=== PATIENT | male | born 1935 | race Caucasian/White ===

== ENCOUNTER 2023-09-24 11:11 | Emergency (ER) | payer MEDICARE, BC, SELFPAY ==
--- NOTE | ~2023-09-24 | XR_ITS ---
EXAMINATION:XR foot LT 2V, XR ankle LT min 3V VIEWS ACQUIRED: Frontal lateral and oblique left foot, 2 views ankle, total 5 views. CLINICAL INFORMATION: Reason for Exam Lt foot pain COMPARISON: None available at the time of this dictation. FINDINGS: Mildly displaced oblique fracture of the distal fibula just proximal to the ankle mortise. There is avulsion fracture of the medial malleolar tip suggesting eversion injury. Talar dome and tibial plafonds are intact. There is soft tissue swelling around medial and lateral malleoli. There are no other fractures.. Intertarsal, tarsometatarsal, metatarsophalangeal and interphalangeal joints are intact. Surrounding soft tissues is normal. , There are heavy vascular calcifications. XR/XR foot LT 2V IMPRESSION: 1. Mildly displaced oblique fracture of the distal fibula just proximal to the ankle mortise. 2. Avulsion fracture of the medial malleolar tip. 3. Soft tissue swelling around medial and lateral malleoli. 4. Heavy vascular calcifications.
--- NOTE | ~2023-09-24 | XR_ITS ---
EXAMINATION:XR foot LT 2V, XR ankle LT min 3V VIEWS ACQUIRED: Frontal lateral and oblique left foot, 2 views ankle, total 5 views. CLINICAL INFORMATION: Reason for Exam Lt foot pain COMPARISON: None available at the time of this dictation. FINDINGS: Mildly displaced oblique fracture of the distal fibula just proximal to the ankle mortise. There is avulsion fracture of the medial malleolar tip suggesting eversion injury. Talar dome and tibial plafonds are intact. There is soft tissue swelling around medial and lateral malleoli. There are no other fractures.. Intertarsal, tarsometatarsal, metatarsophalangeal and interphalangeal joints are intact. Surrounding soft tissues is normal. , There are heavy vascular calcifications. XR/XR ankle LT min 3V IMPRESSION: 1. Mildly displaced oblique fracture of the distal fibula just proximal to the ankle mortise. 2. Avulsion fracture of the medial malleolar tip. 3. Soft tissue swelling around medial and lateral malleoli. 4. Heavy vascular calcifications.
[2023-09-24 11:15] VITALS: BP 116/69; PULSE 85; RESP 16; TEMP 36.9; O2SAT 97; BMI 26.5
--- NOTE | 2023-09-24 11:17 | ED_ITS ---
HPI - Fall General Chief Complaint: Extremity Injury, Lower Stated Complaint: Fall Time Seen by Provider: 09/24/23 11:33 Source: patient and family Mode of arrival: ambulatory Limitations: no limitations History of Present Illness HPI Narrative: 87-year-old male presents to the emergency department for evaluation of left ankle and foot pain status post slip and fall on med prior to arrival. Patient reports he slipped, when he slipped his left foot/ankle landed underneath him, since then has been having pain and swelling to left foot and ankle with bruising in significant discomfort with movement and weight-bearing. Patient not on blood thinners. When he fell he did not hit his head or injure any other parts of the body. He reports was able to walk on it afterwards but now it has hurting a lot. Reporting intermittent numbness and tingling. Denies chest pain, shortness of breath, nausea, vomiting, abdominal pain, headache, vision changes, dizziness and weakness. Related Data Previous Rx's ?Medication ?Instructions ?Recorded acetaminophen 325 mg capsule 650 mg (2 x 325 mg) PO Q4H PRN 09/24/23 (Tylenol) pain #30 caps ibuprofen 600 mg tablet 600 mg PO Q6H PRN fever or pain 09/24/23 #30 tabs Allergies Allergy/AdvReac Type Severity Reaction Status Date / Time No Known Allergies [NKA] Allergy Mild NOT Verified 09/24/23 11:17 APPLICABLE Review of Systems Review of Systems: Yes all other systems are reviewed and are negative FORMERLY [facility], [facility]–1983 Past Medical History Attestation statement: The following information was validated with the patient. Source: old records reviewed and nursing notes reviewed Social History Social History Smoked in Last 30 Days: No Use of substances other than those prescribed or required for medical reasons: No Advance Directives: No Advance Directives Information Provided: Yes Physical Exam Vital Signs: Vital Signs: Last Vital Signs Temp 98.4 F 09/24/23 11:15 Pulse 85 09/24/23 11:15 Resp 16 09/24/23 11:15 BP 116/69 09/24/23 11:15 Pulse Ox 97 09/24/23 11:15 O2 Del Method Room Air 09/24/23 11:15 BMI result Body Mass Index 26.5 vss Appearance: Alert.? Oriented X3.? No acute distress.? Head: Normocephalic, atraumatic, no step-offs or deformities Eyes: Pupils equal, round and reactive to light.? Neck: Normal inspection.? Neck supple.? CVS: Normal heart rate and rhythm.? Pulses normal.? Respiratory: No respiratory distress.? Breath sounds normal.? Abdomen: Soft and nontender.? Skin: Skin warm and dry.? Normal skin color.? Normal skin turgor.? Extremities: + 1+ pitting edema from knee down b/l. ? No calf ttp. 5/5 strength to bilateral upper and lower extremities 2+ DP,AT,PT pulsese equal and b/l. Normal sensation distally b/l. + deformity and swelling to left ankle both medial and lateral malleolous w/ ecchymosis overlying. Can wiggle toes b/l. Normal ROM to R ankle unable to acess ROM to left ankle due to pain. L second toe w/ ecchymosis and swelling noted. 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 Back: No midline tenderness, no C-spine tenderness, full range of motion, no CVA tenderness bilaterally Neuro: Oriented X 3.? No motor deficit.? No sensory deficit. CN 2-12 intact . Negative Romberg and pronator drift. 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 Normal [id number]. Course Course Course Narrative: This is a rapid medical exam. Deferred additional HPI, ROS, PE to primary provider. 87 yo male who has no known medical problems, takes no daily medications but has not seen a PCP in years presents to the ER with left ankle pain after mechanical fall with no head strike or LOC. X-rays ordered VSS Reevaluation(s) Reevaluation #1: X-ray of left ankle with mildly displaced oblique fracture of the distal fibula just proximal to the ankle more set. Avulsion fracture of the medial malleolar tip. Soft tissue swelling around medial and lateral malleoli. Heavy vascular calcifications. Discuss this case with ortho who recommends walking boot and partial weight-bearing. Patient to follow-up with the orthopedic team. Educated patient on diagnosis and treatment plan, answered all question, patient verbalizes understanding. At this time patient will be discharged home, advised to return with new or worsening symptoms. Educated on worrisome signs and symptoms and when to return. At this time I feel comfortable discharge home. Time: 14:32 Medications Administered Discontinued Medications Generic Name Dose Route Start Last Admin Trade Name Ajit PRN Reason Stop Dose Admin Acetaminophen 975 mg 09/24/23 12:11 09/24/23 12:16 Acetaminophen 325 Mg Tablet PO 09/24/23 12:12 975 mg ONCE ONE Administration Morphine Sulfate 15 mg 09/24/23 11:50 09/24/23 12:15 Morphine Sulfate Immed Release 15 Mg Tablet PO 09/24/23 11:51 Not Given ONCE ONE Medical Decision Making Medical Decision Making [facility] Narrative: 1148 87-year-old male presents status post slip and fall on med, complaining of left ankle pain, swelling, no head strike or loss of consciousness. No other injuries sustained from fall. Not on thinners. Physical exam + 1+ pitting edema from knee down b/l. ? No calf ttp. 5/5 strength to bilateral upper and lower extremities 2+ DP,AT,PT pulsese equal and b/l. Normal sensation distally b/l. + deformity and swelling to left ankle both medial and lateral malleolous w/ ecchymosis overlying. Can wiggle toes b/l. Normal ROM to R ankle unable to acess ROM to left ankle due to pain. L second toe w/ ecchymosis and swelling noted. 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 Concerns for fracture versus dislocation versus sprain or strain. No signs of neurovascular compromise, acute threat to limb. No signs of trauma to head, neck, chest, abdomen or pelvis. Plan imaging Differential Diagnosis Differential Diagnoses: The differential diagnosis associated with the presentation includes Concerns for fracture versus dislocation versus sprain or strain. No signs of neurovascular compromise, acute threat to limb. No signs of trauma to head, neck, chest, abdomen or pelvis. Admission/Observation Consideration of admission/observation: Escalation of care including admission/observation considered Independent Interpretation I performed an independent interpretation of an: Plain X-Ray ( XR/XR ankle LT min 3V IMPRESSION: 1. Mildly displaced oblique fracture of the distal fibula just proximal to the ankle mortise. 2. Avulsion fracture of the medial malleolar tip. 3. Soft tissue swelling around medial and lateral malleoli. 4. Heavy vascular calcifications.) Radiology Impression Discussion of test interpretation with radiology: I have reviewed the radiologist's reading. Prescription Management I considered prescription management with: Pain Medication Discharge Plan Discharge Clinical Impression: Fracture of distal end of fibula, Fracture of medial malleolus Patient Disposition: Home, Self-Care Instructions: Leg Fracture (ED), Crutch Instructions (ED) Additional Instructions: Take your medications as prescribed. If you were prescribed antibiotics today, it is important that you take your medication to their entirety, do not skip any doses, do not finish them early. Follow-up with your primary care provider this week. Return to the emergency department with new or worsening symptoms. Such as fevers, chills, chest pain, shortness of breath, nausea, vomiting, dizziness, headache, vision changes, lethargy In case of emergency call 911 Follow-up with orthopedics within a week. Wear boot during the day. Elevate extremity at night. Return with new or worsening symptoms worsening pain, swelling, inability to feel toes discoloration of skin. You can take ibuprofen every 6 hours Tylenol every 4 as needed for pain or discomfort. Prescriptions: New acetaminophen [Tylenol] 325 mg capsule 650 mg PO Q4H PRN (Reason: pain) Qty: 30 0RF ibuprofen 600 mg tablet 600 mg PO Q6H PRN (Reason: fever or pain) Qty: 30 0RF Referrals: [facility] [place] Orthopedic Surgeons [Provider Group] - 1 week Physician,None [Primary Care Provider] - 2 days Stand Alone Forms: Work/School Release Print Language: Estonian
[2023-09-24] MEDS: Acetaminophen 325 MG TABLET 975 MG PO (12:16)
[2023-09-24] MEDS: Ibuprofen 600 MG TABLET PO (15:28)
[2023-09-24 15:36] VITALS: BP 118/72; PULSE 88; RESP 16; TEMP 36.8; O2SAT 98
--- NOTE | 2023-09-24 15:38 | PC.NURSE ---
pt a&ox3 c/o 10/13 pain, pt medicated per order., left boot placed per request of provider pt had + csm, pt able to ambulate with boot on with his cane-steady gait, family to stay at patients house with him after discharge
== END 2023-09-24 15:37 | disposition home or self-care (01) ==
PROVIDERS: Emergency Provider Emergency Medicine
DX: S82.432A Displaced oblique fracture of shaft of left fibula, initial encounter for closed fracture (principal); S82.52XA Displaced fracture of medial malleolus of left tibia, initial encounter for closed fracture; W01.0XXA Fall on same level from slipping, tripping and stumbling without subsequent striking against object, initial encounter; R60.0 Localized edema; Y93.9 Activity, unspecified; Y92.410 Unspecified street and highway as the place of occurrence of the external cause; Y99.9 Unspecified external cause status
CPT/HCPCS: 73610; 73620; 99283; 99284

== ENCOUNTER 2023-10-07 07:05 | Outpatient (REF) | payer MEDICARE, BC, SELFPAY | END 2023-10-07 07:06 | disposition home or self-care (01) | LOC: HO.HOSX 07:05 | PROVIDERS: Visit Provider Physician Assistant | DX: Z13.89 Encounter for screening for other disorder (principal) ==

== ENCOUNTER 2024-03-14 08:54 | Outpatient (AMB) | payer MEDICARE, BC, SELFPAY ==
--- NOTE | 2024-03-14 08:57 | MHC.PC.OV ---
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: No Allergies No Known Allergies [NKA] Allergy (Mild, Verified 03/14/24 09:14) NOT APPLICABLE Medication List - Last Reconciled 03/14/24 by Feliciano Rubio CNP ibuprofen 600 mg PO Q6H PRN Tobacco use date assessed: 03/14/24 Fall risk assessment: 1 Fall in past year Last assessed Fall Risk: 03/14/24 Dental Screening Dental Screen Date: 03/14/24 Did you have a dental visit in the last 12 months?: Yes Did you have a dental problem in the last 6 months where you did not have access to dental care?: No Was dental information given to patient?: Patient has dentist HPI HPI Comments History of Present Illness Details New patient Prior PCP:[facility] Dr. Shamir Forde Last office visit/CPE: About 2 years Acute issue(s): None Not on prescription medications He generally generally eats and sleeps well. He exercise routinely He notes that he has a scabbed lesion on his upper chest. The lesion has been present for the past 20 years; it was intact and soft, but spontaneously broke and scabbed. Occasionally, the scab will, off and the area will bleed. His former PCP was aware of the lesion which has never been evaluated by Dermatology PMHx: None SurgHx: Left ankle repair surgery 2023, cholecystectomy, appendectomy FHx: Mom: Dad: bone cancer SocHx: Chews tobacco occasionally. Former smoker, quit 20 years ago. Does not drink. 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 He will sign a release for his PCP to obtain record Last colonoscopy was 10-15 years ago: normal He note that he was vaccinated for shingles and PNA Last tetanus vaccine about 2 years ago He has not been vaccinated for the flu this season but intends to get get vaccinated [facility] Medical History (Updated 03/14/24 @ 13:03 by Jessica Chance MA) FH: cholecystectomy Ankle fracture, left Surgical History (Updated 03/14/24 @ 13:03 by Jessica Chance MA) Hx of appendectomy Family History (Updated 03/14/24 @ 10:44 by Jessica Chance MA) Father Bone cancer Social History Housing: House Patient Tobacco Use Status: Current everyday Tobacco user Tobacco use type: Smokeless Tobacco e-Cigarette/Vaping Use: Never Used service: No Current occupational status: retired Current occupational exposures/hazards: No Cognitive needs: No Hearing needs: No Vision needs: Yes Questionnaire PHQ-9 Over the last 2 weeks, how often have you been bothered by any of the following problems? 1. Little interest or pleasure in doing things: not at all 2. Feeling down, depressed, or hopeless: not at all 3. Trouble falling or staying asleep, or sleeping too much: more than half the days 4. Feeling tired or having little energy: several days 5. Poor appetite or overeating: not at all 6. Feeling bad about yourself - or that you are a failure or have let yourself or your family down: not at all 7. Trouble concentrating on things, such as reading the newspaper or watching television: several days 8. Moving or speaking so slowly that other people could have noticed. Or the opposite - being so fidgety or restless that you have been moving around a lot more than usual: not at all 9. Thoughts that you would be better off or of hurting yourself in some way: not at all Total score: 4 Depression Screening Interpretation: Negative Depression Screening Done: Yes [id number] - PHQ-9 Billing: Yes Source: Developed by Drs. Alec Gayle, Arielle Chin, Jh Elliott and colleagues, with an educational trisha from [employer]. Thrive Questionnaire Date Thrive assessed: 03/14/24 I am a: Patient What is your living situation today?: I have a steady place to live Within the past 12 months, did the food you bought not last and you didn't have the money to get more?: Never true Within the past 12 months, did you worry whether your food would run out before you got money to buy more?: Never true Do you have trouble paying for medicines?: No Do you have trouble getting transportation to medical appointments?: Yes Do you have trouble paying your heating and electricity bill?: No Do you have trouble taking care of your child, family member or friend?: No Do you have trouble with day-to-day activities such as bathing, preparing meals, shopping, managing finances, etc.?: No Are you currently unemployed and looking for a job?: No Are you interested in more education?: No Please select the resources that you would like help with: None Currently or been in a relationship where the following occur: No concerns reported THRIVE Score: 1 AUDIT C Alcohol Use Questionnaire (AUDIT-C) 1. How often do you have a drink containing alcohol?: Never Total Score: 0 Score Reviewed/Action Taken: Yes ELIEZER-7 AMB Questionnaire ELIEZER-7 Date ELIEZER - 7 assessed: 03/14/24 Feeling nervous, anxious, or on edge: 0 = Not at all Not being able to stop or control worryin = Not at all Worrying too much about different things: 1 = Several days Trouble relaxin = Not at all Being so restless that it is hard to sit still: 0 = Not at all Becoming easily annoyed or irritable: 0 = Not at all Feeling afraid as if something awful might happen: 0 = Not at all Total ELIEZER-7 score (0-4 normal; 5-9 mild; 10-14 moderate; 15-21 severe): 1 Source: Developed by Drs. Alec Gayle, Arielle Chin, Jh Elliott and colleagues, with an educational trisha from [employer]. ELIEZER-7 Assessment Billing ELIEZER-7 Assessment Tool: ELIEZER-7 Assessment 24637 Review of Systems Const Details: Denies chills, Denies fatigue, Denies fever(s), Denies headache(s) and Denies weakness HEENT Denies change in vision, Denies dizziness, Denies headache(s), Denies hearing loss, Denies nasal congestion, Denies sinus pain, Denies sinus pressure and Denies sore throat Card Denies chest pain, Denies lightheadedness, Denies dyspnea and Denies other (palpitations) Resp Denies cough, Denies dyspnea and Denies wheezing GI Denies abdominal pain, Denies melena, Denies hematochezia, Denies change in bowel habits, Denies dyspepsia and Denies nausea Denies hematuria and Denies dysuria Musc Denies abnormal gait, Denies myalgias, Denies arthralgias, Denies numbness and Denies tingling Skin/Breast Denies rash, Denies unusual bruising and Denies wounds Neuro Denies abnormal gait, Denies dizziness, Denies headache(s), Denies memory loss, Denies numbness, Denies Sensory deficit (Neuro), Denies tingling and Denies weakness Psych Denies anxiety, Denies depression and Denies memory loss Endo Denies cold intolerance, Denies fatigue, Denies heat intolerance, Denies polydipsia and Denies polyuria Miguelangel/Lymph Denies easy bleeding and Denies easy bruising Aller/Immun Denies wheezing Physical exam (Primary Care) Vital Signs: Last Vital Signs Temp 97.6 F 03/14/24 09:07 Pulse 85 03/14/24 09:07 Resp 16 03/14/24 09:07 BP 104/58 L 03/14/24 09:07 Pulse Ox 97 03/14/24 09:07 Oxygen Delivery Method Room Air 03/14/24 09:07 BMI result Body Mass Index 27.4 Tobacco/Smoking Status: Tobacco use Status Tobacco use date assessed 03/14/24 03/14/24 09:06 Patient Tobacco Use Status Current everyday Tobacco 03/14/24 09:06 Tobacco use type Smokeless Tobacco 03/14/24 09:06 e-Cigarette/Vaping Use Never Used 03/14/24 09:06 PHQ-9: PHQ-9 Score PHQ-9: Total score 4 03/14/24 13:03 Depression Screening Interpretation: Negative Thrive Assessment: Date of Thrive Assessment Date Thrive assessed 03/14/24 03/14/24 09:06 Currently or been in a relationship where the following occur: No concerns reported Const Other: General: no acute distress, well developed, alert and awake Nutritional Appearance: well nourished Orientation/consciousness: patient oriented x3 HENMT Head: Yes normocephalic and Yes atraumatic Ears: hearing grossly normal bilaterally and TM's normal bilaterally General nose exam: Normal external nose present and Normal nares present Mouth: Normal oral and palatal mucosa present and moist mucous membranes Teeth and gingiva: Upper and lower dentures Throat: Yes oropharynx normal Eyes Pupils: Equal, round and reactive pupils present and Pupil accommodation reflex normal EOM: EOMs intact bilaterally Neck Neck: Yes normal visual inspection, Yes no lymphadenopathy and Yes trachea midline Thyroid: Thyroid normal Carotids: no bruits Lymphatic: no lymphadenopathy noted Chest Chest palpation & inspection: normal inspection of the chest Resp Effort & Inspection: normal respiratory effort Auscultation: clear to auscultation bilaterally Cardio Rate: regular rate Rhythm: regular rhythm Heart sounds: S1 normal heart sound present, S2 normal heart sound present, no gallops, no murmurs and no rubs Bruits: no abdominal aortic bruits and no carotid bruits GI Palpation (GI): No Abdominal aortic bruit present, Soft to palpation, nontender, No hepatosplenomegaly present and No Rebound tenderness present Auscultation: normal bowel sounds General: Yes no CVA tenderness Back/Spine/Pelvis Back: no CVA tenderness Cervical Spine: cervical ROM normal and No Cervical spine tenderness Thoracic/Lumbar Spine: thoraco-lumbar ROM normal, No pain with thoraco-lumbar ROM, No thoracic spinal tenderness and No lumbar spinal tenderness Skin General: warm and dry. Normal skin color. Normal skin turgor Lesions: Scabbed lesion to mid upper chest Rashes: no rashes Trauma: no lacerations or abrasions Wounds: no wounds Nails: normal Neuro General: patient oriented x3, gait normal and CN's II-XI intact bilaterally Cranial nerves: Yes Equal, round and reactive pupils present Cognition (Neuro): normal cognition Gait exam (Neuro): Normal gait present Motor exam (neuro): 5/5 motor strength present throughout Sensory Exam: No Sensory deficit (Neuro) Deep tendon reflexes (DTR's): Right patellar reflex intensity grade: 2+ and Left patellar reflex intensity grade: 2+ Extrem General: Yes normal to inspection, No edema and No calf tenderness Psych Appearance: grossly normal Affect: normal affect Attitude: cooperative Thought process: Normal thought process present Coding Level of Care Code New Pt Prev Care >65yr (57316) Diagnoses Normal physical examination, routine Z00.00 Skin lesion of chest wall L98.9 Laboratory tests ordered as part of a complete physical exam (CPE) Z00.00 Additional Codes ELIEZER-7 Assessment Billing - ELIEZER-7 Assessment Tool: ELIEZER-7 Assessment 57415 ([id number]) Assessment & Plan Assessment & Plan (1) Normal physical examination, routine: Code(s): Z00.00 - Encounter for general adult medical examination without abnormal findings Category: Medical Plan: No significant physical restrictions or limitations noted Healthy diet and routine exercise encouraged Advised to get lab work done and follow-up for telehealth in 2-3 weeks for labs review Return sooner with symptoms or concerns Verbalized understanding and agreed with the treatment plan (2) Skin lesion of chest wall: Code(s): L98.9 - Disorder of the skin and subcutaneous tissue, unspecified Category: Medical Plan: He has a scabbed lesion on his upper chest. The lesion has been present for the past 20 years; it was intact and soft, but spontaneously broke and scabbed. Occasionally, the scab will come off and the area will bleed. He has never been evaluated by Dermatology Scabbed lesion to mid upper chest Referred to [place] dermat[facility] (3) Laboratory tests ordered as part of a complete physical exam (CPE): Code(s): Z00.00 - Encounter for general adult medical examination without abnormal findings Category: Medical Plan: Fasting labs ordered as part of a complete physical exam. Advised to fast for at least 10 hours before getting labs drawn. May drink water Verbalized understanding and agreed with treatment plan. Orders: Orders Complete Blood Count Auto Diff Today Z00.00 - Encounter for general adult medical examination without abnormal findings Microalbumin, Random (w Creat) Today Z00.00 - Encounter for general adult medical examination without abnormal findings Lipid Panel Today Z00.00 - Encounter for general adult medical examination without abnormal findings TSH reflex Free T4 Today Z00.00 - Encounter for general adult medical examination without abnormal findings UA CC w/rflx Micro + Cult Today Z00.00 - Encounter for general adult medical examination without abnormal findings Comprehensive [place]. Panel Fast Today Z00.00 - Encounter for general adult medical examination without abnormal findings Referrals Dermatology Referral L98.9 - Disorder of the skin and subcutaneous tissue, unspecified Medications: Discontinued acetaminophen (Tylenol) Discontinued Reason: Patient no longer taking 650 mg (2 x 325 mg) PO Q4H PRN 30 caps 0RF pain
[2024-03-14 09:07] VITALS: BP 104/58; PULSE 85; RESP 16; TEMP 36.4; O2SAT 97; BMI 27.4
== END 2024-03-14 09:40 | disposition home or self-care (01) ==
LOC: HO.HMCFM 08:54
PROVIDERS: PCP Family Medicine; Visit Provider Nurse Practitioner Family
DX: Z00.00 Encounter for general adult medical examination without abnormal findings (principal); L98.9 Disorder of the skin and subcutaneous tissue, unspecified

== ENCOUNTER → 2024-03-14 08:54 | Outpatient (BNVA) | payer MEDICARE, BC, SELFPAY | PROVIDERS: PCP Family Medicine; Visit Provider Nurse Practitioner Family | DX: Z00.00 Encounter for general adult medical examination without abnormal findings (principal); L98.9 Disorder of the skin and subcutaneous tissue, unspecified | CPT/HCPCS: 96127; 99387 ==

== ENCOUNTER 2024-03-16 10:14 | Outpatient (REF) | payer MEDICARE, BC, SELFPAY ==
[2024-03-16 14:07] LABS: MANUAL DIFF FLAG NO
[2024-03-16 14:09] LABS: Basophils Absolute Auto 0.1 X10*3/uL (0.0-0.2); Basophils Percent Auto 0.8 % (0-2); Eosinophils Absolute Auto 0.2 X10*3/uL (0.0-0.4); Eosinophils Percent Auto 2.4 % (0-4); Hemoglobin 15.3 g/dl (14.0-18.0); Imm Gran Abs Auto 0.02 X10*3/uL (0.00-0.03); Imm Gran Pct Auto 0.2 % (0.0-0.4); Lymphocytes Absolute Auto 3.1 X10*3/uL (1.2-4.9); Lymphocytes Percent Auto 35.7 % (20-40); Mean Corpuscular HGB Conc 34.8 g/dl (31.0-36.0); Mean Corpuscular Hemoglobin 31.7 pg (27.0-33.0); Mean Corpuscular Volume 91.1 fL (80.0-98.0); Mean Platelet Volume 9.1 fL (9.4-12.4); Monocytes Absolute Auto 0.8 X10*3/uL (0.1-1.2); Monocytes Percent Auto 8.9 % (2-11); Neutrophils Absolute Auto 4.5 x10*3/uL (2.0-8.3); Platelet Count 292 X10*3/uL (160-400); Red Blood Count 4.83 X10*6/uL (4.60-5.80); Red Cell Distribution Width 12.5 % (11.0-16.0); White Blood Count 8.6 X10*3/uL (4.8-10.8)
[2024-03-16 14:22] LABS: Appearance Urine Clear; Color Urine Yellow; Glucose Urine UA Negative (Negative); Leukocyte Esterase Urine Negative (Negative); Nitrite Urine Negative (Negative); Specific Gravity - Urine 1.015 (1.005-1.025); Urine Blood Negative (Negative); Urine Ketones Negative (Negative); Urine Protein Negative (Neg-Trace)
[2024-03-16 14:31] LABS: Alanine Aminotransferase 25 U/L (0-40); Alkaline Phosphatase 129 U/L (39-117); Anion Gap 12 (12-20); Aspartate Amino Transferase 24 U/L (5-37); Bilirubin Total 1.1 mg/dL (0.0-1.0); Blood Urea Nitrogen 13 mg/dL (9-16); Calcium 9.4 mg/dL (8.4-10.2); Carbon Dioxide 25 mmol/L (22-29); Chloride 100 mmol/L (96-108); Cholesterol 186 mg/dL (<200); Estimated Glomerular Filt Rate 41; Glucose Fasting 122 mg/dL (60-99); HDL Cholesterol 42 mg/dL (>40); LDL Cholesterol Calculated 122 mg/dL (<100); Potassium 4.3 mmol/L (3.3-5.1); Sodium 133 mmol/L (135-145); Total Protein 7.5 g/dL (6.5-8.0); Triglycerides 110 mg/dL (<150)
[2024-03-16 14:47] LABS: TSH reflex Free T4 7.03 uIU/mL (0.32-4.0)
[2024-03-16 14:51] LABS: Creatinine Urine 189.94 mg/dL; Microalbum/Creatinine Ratio Ur 16.3 ug/mg cr (<30)
[2024-03-16 15:48] LABS: Free T4 (Free Thyroxine) 0.93 ng/dL (0.71-1.85)
== END 2024-03-16 10:15 | disposition home or self-care (01) ==
LOC: HO.WFDLDS 10:14
PROVIDERS: Visit Provider Nurse Practitioner Family
DX: Z00.00 Encounter for general adult medical examination without abnormal findings (principal)
CPT/HCPCS: 36415; 80053; 80061; 81003; 82043; 82570; 84439; 84443; 85025

== ENCOUNTER 2024-03-22 10:21 | Outpatient (REF) | payer MEDICARE, BC, SELFPAY ==
[2024-03-22 14:49] LABS: Alanine Aminotransferase 22 U/L (0-40); Albumin Level 3.9 g/dL (3.5-5.0); Alkaline Phosphatase 122 U/L (39-117); Anion Gap 9 (12-20); Aspartate Amino Transferase 23 U/L (5-37); Bilirubin Total 0.9 mg/dL (0.0-1.0); Blood Urea Nitrogen 12 mg/dL (9-16); Calcium 9.5 mg/dL (8.4-10.2); Carbon Dioxide 28 mmol/L (22-29); Chloride 101 mmol/L (96-108); Estimated Glomerular Filt Rate 44; Glucose Fasting 116 mg/dL (60-99); Potassium 4.4 mmol/L (3.3-5.1); Sodium 134 mmol/L (135-145); Total Protein 7.4 g/dL (6.5-8.0)
== END 2024-03-22 10:22 | disposition home or self-care (01) ==
LOC: HO.WFDLDS 10:21
PROVIDERS: Visit Provider Nurse Practitioner Family
DX: R89.9 Unspecified abnormal finding in specimens from other organs, systems and tissues (principal)
CPT/HCPCS: 36415; 80053

== ENCOUNTER 2024-04-04 16:23 | Outpatient (AMB) | payer MEDICARE, BC, SELFPAY ==
--- NOTE | 2024-04-04 16:29 | A.OFFPC_ITS ---
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 Allergies No Known Allergies [NKA] Allergy (Mild, Verified 04/04/24 16:40) NOT APPLICABLE Tobacco use date assessed: 04/04/24 Fall risk assessment: 1 Fall in past year Last assessed Fall Risk: 04/04/24 Dental Screening Dental Screen Date: 03/14/24 Did you have a dental visit in the last 12 months?: No Did you have a dental problem in the last 6 months where you did not have access to dental care?: No Was dental information given to patient?: Patient has dentist HPI HPI Comments History of Present Illness Details 88-year-old male presents for review of recent lab results He offers no complaints and denies acute symptoms at this time [facility] Medical History (Updated 04/04/24 @ 16:56 by Feliciano Rubio CNP) FH: cholecystectomy Ankle fracture, left Surgical History (Updated 03/14/24 @ 13:03 by Jessica Chance MA) Hx of appendectomy Family History (Updated 03/14/24 @ 10:44 by Jessica Chance MA) Father Bone cancer Social History Housing: House Patient Tobacco Use Status: Current everyday Tobacco user Tobacco use type: Smokeless Tobacco e-Cigarette/Vaping Use: Never Used service: No Current occupational status: retired Current occupational exposures/hazards: No Cognitive needs: No Hearing needs: No Vision needs: Yes Questionnaire Thrive Questionnaire Date Thrive assessed: 03/14/24 ELIEZER-7 AMB Questionnaire ELIEZER-7 Date ELIEZER - 7 assessed: 03/14/24 Source: Developed by Drs. Alec Gayle, Arielle Chin, Jh Elliott and colleagues, with an educational trisha from [employer] Review of Systems Const Details: Const Denies chills, Denies fatigue, Denies fever(s), Denies headache(s) and Denies weakness ENT Denies dizziness and Denies headache(s) Card Denies chest pain, Denies lightheadedness, Denies dyspnea and Denies other (Palpitations) Resp Denies cough, Denies dyspnea, Denies wheezing and Denies other ( shortness of breath) GI Denies abdominal pain, Denies melena, Denies hematochezia, Denies change in bowel habits, Denies dyspepsia and Denies nausea Denies hematuria and Denies dysuria Musc Denies abnormal gait, Denies myalgias, Denies arthralgias, Denies numbness and Denies tingling Skin/Breast Denies rash, Denies unusual bruising and Denies wounds Neuro Denies abnormal gait, Denies dizziness, Denies headache(s), Denies memory loss, Denies numbness, Denies Sensory deficit (Neuro), Denies tingling and Denies weakness Psych Denies anxiety, Denies depression, Denies memory loss Endo Denies cold intolerance, Denies fatigue, Denies heat intolerance, Denies polydipsia and Denies polyuria Aller/Immun Denies wheezing Physical exam (Primary Care) Vital Signs: Last Vital Signs Temp 97.4 F 04/04/24 16:30 Pulse 63 04/04/24 16:30 Resp 16 04/04/24 16:30 BP 148/84 H 04/04/24 16:30 Pulse Ox 98 04/04/24 16:30 Oxygen Delivery Method Room Air 04/04/24 16:30 BMI result Body Mass Index 27.5 Tobacco/Smoking Status: Tobacco use Status Tobacco use date assessed 04/04/24 04/04/24 16:31 Patient Tobacco Use Status Current everyday Tobacco 04/04/24 16:31 Tobacco use type Smokeless Tobacco 04/04/24 16:31 e-Cigarette/Vaping Use Never Used 04/04/24 16:31 Thrive Assessment: Date of Thrive Assessment Date Thrive assessed 03/14/24 04/04/24 16:31 Const Other: General: no acute distress and well developed Nutritional Appearance: well nourished Orientation/consciousness: patient oriented x3 HENMT Head: Yes normocephalic and Yes atraumatic Eyes General: appearance normal, both eyes and all related structures Pupils: Equal, round and reactive pupils present EOM: EOMs intact bilaterally Resp Effort & Inspection: normal respiratory effort Auscultation: clear to auscultation bilaterally Cardio Rate: regular rate Rhythm: regular rhythm Heart sounds: S1 normal heart sound present, S2 normal heart sound present, no gallops, no murmurs and no rubs GI Palpation (GI): No Abdominal aortic bruit present, Soft to palpation, nontender, No hepatosplenomegaly present and No Rebound tenderness present Auscultation: normal bowel sounds General: Yes no CVA tenderness Back/Spine/Pelvis Back: no CVA tenderness Extrem General: Yes normal to inspection, No edema and No calf tenderness Skin General: warm and dry. Normal skin color. Normal skin turgor Neuro General: patient oriented x3, gait normal and no focal neuro deficit Cranial nerves: Yes Equal, round and reactive pupils present Cognition (Neuro): normal cognition Gait exam (Neuro): Normal gait present Sensory Exam: No Sensory deficit (Neuro) Psych Appearance: grossly normal Affect: normal affect Attitude: cooperative Thought process: Normal thought process present Results AMB Hemoglobin A1c AMB Hemoglobin A1c 6.1 % Last Edit by DENIA Hernandez on 04/04/24 16:58 Results Reviewed Results Reviewed: Laboratory Last Values Hgb A1c (Clinic) 6.1 % (4.0-6.0) H 04/04/24 16:54 Coding Level of Care Code Est Pt Level 3 (25790) Diagnoses Hyponatremia E87.1 Chronic kidney disease N18.9 Elevated alkaline phosphatase level R74.8 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 Previous level was 133 Encouraged to maintain adequate sodium intake Will recheck sodium levels in a month and make changes as needed Will recheck labs in 1 month. Advised to get blood work done before his next visit Follow-up in a month Verbalized understanding and agreed with the plan (2) Chronic kidney disease: Code(s): N18.9 - Chronic kidney disease, unspecified Category: Medical Plan: Recent creatinine level is elevated, 1.52. Previous creatinine level was 1.60. Recent GFR is 44. Previous GI for was 41. Normal BUN and urine microalbumin/creatinine ratio Dehydration is possible Will referred to [facility] nephrology Verbalized understanding and agreed with the plan (3) Elevated alkaline phosphatase level: Code(s): R74.8 - Abnormal levels of other serum enzymes Category: Medical Plan: Recent alkaline phosphate is 122. Previous alkaline phosphate level was 129. AST and ALT are normal. Alk-phos is elevated likely due to kidney disease and may improve as kidney function improves. Referred to [facility] [place]phrology for kidney disease. (4) Subclinical hypothyroidism: Code(s): E03.8 - Other specified hypothyroidism Category: Medical Plan: Recent TSH level is elevated, 7.03. T4 was normal, 0.93. No symptoms of hypo/hyperthyroidism. Will recheck TSH/T4 levels and make changes as needed. Advised to follow-up with symptoms or concerns. Verbalized understanding and agreed with treatment plan. (5) Prediabetes: Code(s): R73.03 - Prediabetes Category: Medical Plan: Recent fasting glucose is elevated, 116. Previous level was 122 Alc today is 6.1% He notes that he consumes significant amount of bread ADA diet encouraged. Advised to limit carbs such as rice, bread, potato, pasta Routine exercise encouraged Will recheck A1c in 3 months Verbalized understanding and agreed with the plan Orders: Orders TSH reflex Free T4 04/04/24 E03.8 - Other specified hypothyroidism AMB Hemoglobin A1c 04/04/24 Z13.9 - Encounter for screening, unspecified Comprehensive [place]. Panel Fast 1 Month E87.1 - Hypo-osmolality and hyponatremia, N18.9 - Chronic kidney disease, unspecified, R74.8 - Abnormal levels of other serum enzymes Referrals Nephrology Referral N18.9 - Chronic kidney disease, unspecified
[2024-04-04 16:30] VITALS: BP 148/84; PULSE 63; RESP 16; TEMP 36.3; O2SAT 98; BMI 27.5
== END 2024-04-05 13:38 | disposition home or self-care (01) ==
PROVIDERS: PCP Family Medicine; Visit Provider Nurse Practitioner Family
DX: E87.1 Hypo-osmolality and hyponatremia (principal); N18.9 Chronic kidney disease, unspecified; R74.8 Abnormal levels of other serum enzymes; E03.8 Other specified hypothyroidism; R73.03 Prediabetes

== ENCOUNTER → 2024-04-04 16:23 | Outpatient (BNVA) | payer MEDICARE, BC, SELFPAY | PROVIDERS: PCP Family Medicine; Visit Provider Nurse Practitioner Family | DX: R73.03 Prediabetes (principal); E87.1 Hypo-osmolality and hyponatremia; N18.9 Chronic kidney disease, unspecified; R74.8 Abnormal levels of other serum enzymes; E03.8 Other specified hypothyroidism | CPT/HCPCS: 83036; 99212 ==

== ENCOUNTER 2024-05-01 14:08 | Outpatient (AMB) | payer MEDICARE, BC, SELFPAY ==
[2024-05-01 14:40] VITALS: BP 136/66; PULSE 76; O2SAT 98; BMI 27.3
--- NOTE | 2024-05-01 14:40 | HO.NEPHOV_ITS ---
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 He had a routine blood work which showed creatinine of 1.6 EGFR 44 mL/minute. Serum sodium was slightly decreased at 134 millimoles. He has been referred for further evaluation. He is not on any prescription medication. Does not take any NSAIDs. No history of any significant alcohol abuse. Last alcohol intake was a 12 years ago. He occasionally chews tobacco. He has no difficulty urination. [facility] Medical History (Updated 04/04/24 @ 16:56 by Feliciano Rubio CNP) FH: cholecystectomy Ankle fracture, left Surgical History History of ankle surgery Hx of appendectomy Family History Father Bone cancer Social History Housing: House Patient Tobacco Use Status: Current everyday Tobacco user Tobacco use type: Smokeless Tobacco e-Cigarette/Vaping Use: Never Used service: No Current occupational status: retired Current occupational exposures/hazards: No Cognitive needs: No Hearing needs: No Vision needs: Yes Physical Exam Vital Signs: Last Vital Signs Pulse 76 05/01/24 14:40 BP 136/66 05/01/24 14:40 Pulse Ox 98 05/01/24 14:40 BMI result Body Mass Index 27.3 Results Reviewed Nephrology Results: Hgb 15.3 g/dl (14.0-18.0) 03/16/24 WBC 8.6 X10*3/uL (4.8-10.8) 03/16/24 Plt Count 292 X10*3/uL (160-400) 03/16/24 Sodium 134 mmol/L (135-145) L 03/22/24 Potassium 4.4 mmol/L (3.3-5.1) 03/22/24 Chloride 101 mmol/L (96-108) 03/22/24 Carbon Dioxide 28 mmol/L (22-29) 03/22/24 BUN 12 mg/dL (9-16) 03/22/24 Creatinine 1.52 mg/dL (0.5-1.4) H 03/22/24 Calcium 9.5 mg/dL (8.4-10.2) 03/22/24 Urine Protein Negative mg/dL (Neg-Trace) 03/16/24 Urine Creatinine 189.94 mg/dL 03/16/24 Assessment & Plan Assessment & Plan (1) Chronic kidney disease: Code(s): N18.9 - Chronic kidney disease, unspecified Category: Medical (2) Hyponatremia: Code(s): E87.1 - Hypo-osmolality and hyponatremia Category: Medical Plan 88-year-old man with chronic kidney disease. The recent urinalysis was bland without significant proteinuria or hematuria. Glomerular nephritis/interstitial disease seem unlikely First step would be to rule out obstructive uropathy. Obtain renal ultrasonogram. Other possibilities including volume depletion should be considered. Mild hyponatremia. TSH is elevated therefore decreased free water clearance due to hypothyroidism is possibility. Urine studies ordered Workup as outlined below. No medications were added. He has returned to office after the workup is completed Orders: Orders UA and rflx microscopic Today N18.9 - Chronic kidney disease, unspecified Creatinine Urine Today N18.9 - Chronic kidney disease, unspecified Total Protein Urine Random Today N18.9 - Chronic kidney disease, unspecified US renal BI Today I10 - Essential (primary) hypertension, N18.9 - Chronic kidney disease, unspecified Sodium Urine Random Today E87.1 - Hypo-osmolality and hyponatremia, N18.9 - Chronic kidney disease, unspecified Osmolality Urine Today E87.1 - Hypo-osmolality and hyponatremia, N18.9 - Chronic kidney disease, unspecified Osmolality, Serum Today E87.1 - Hypo-osmolality and hyponatremia, N18.9 - Chronic kidney disease, unspecified Basic Metabolic Panel Today N18.9 - Chronic kidney disease, unspecified Uric Acid Today N18.9 - Chronic kidney disease, unspecified Complete Blood Count no Diff Today N18.9 - Chronic kidney disease, unspecified Coding Level of Care Code New Pt Level 4 (36118) Diagnoses Chronic kidney disease N18.9 Hyponatremia E87.1
== END 2024-05-01 14:54 | disposition home or self-care (01) ==
LOC: HO.HKA 14:08
PROVIDERS: PCP Family Medicine; Referring Provider Nurse Practitioner Family; Visit Provider Internal Medicine Hypertension Specialist
DX: N18.9 Chronic kidney disease, unspecified (principal); E87.1 Hypo-osmolality and hyponatremia
CPT/HCPCS: 99204

== ENCOUNTER → 2024-05-01 14:08 | Outpatient (BNVA) | payer MEDICARE, BC, SELFPAY | PROVIDERS: PCP Family Medicine; Referring Provider Nurse Practitioner Family; Visit Provider Internal Medicine Hypertension Specialist | DX: E87.1 Hypo-osmolality and hyponatremia (principal); I12.9 Hypertensive chronic kidney disease with stage 1 through stage 4 chronic kidney disease, or unspecified chronic kidney disease; N18.9 Chronic kidney disease, unspecified | CPT/HCPCS: 99202 ==

== ENCOUNTER 2024-05-02 10:20 | Outpatient (REF) | payer MEDICARE, BC, SELFPAY ==
[2024-05-02 11:38] LABS: Hematocrit 43.7 % (42.0-52.0); Hemoglobin 14.7 g/dl (14.0-18.0); Mean Corpuscular HGB Conc 33.6 g/dl (31.0-36.0); Mean Corpuscular Hemoglobin 31.1 pg (27.0-33.0); Mean Corpuscular Volume 92.6 fL (80.0-98.0); Platelet Count 261 X10*3/uL (160-400); Red Blood Count 4.72 X10*6/uL (4.60-5.80); Red Cell Distribution Width 12.6 % (11.0-16.0); White Blood Count 6.9 X10*3/uL (4.8-10.8)
[2024-05-02 11:59] LABS: Uric Acid 6.7 mg/dL (3.4-7.0)
[2024-05-02 12:04] LABS: Anion Gap 14 (12-20); Blood Urea Nitrogen 13 mg/dL (9-16); Carbon Dioxide 24 mmol/L (22-29); Chloride 98 mmol/L (96-108); Estimated Glomerular Filt Rate 44; Glucose Random 117 mg/dL (60-115); Potassium 4.2 mmol/L (3.3-5.1); Sodium 132 mmol/L (135-145)
[2024-05-02 12:10] LABS: Osmolality, Serum 283 mosm/kg (281-305)
[2024-05-02 12:21] LABS: TSH reflex Free T4 6.16 uIU/mL (0.32-4.0)
[2024-05-02 13:01] LABS: Free T4 (Free Thyroxine) 1.02 ng/dL (0.71-1.85)
[2024-05-02 14:29] LABS: Appearance Urine Clear; Color Urine Yellow; Glucose Urine UA Negative (Negative); Leukocyte Esterase Urine Negative (Negative); Nitrite Urine Negative (Negative); Urine Blood Negative (Negative); Urine Ketones Negative (Negative); Urine Protein Negative (Neg-Trace)
[2024-05-02 15:01] LABS: Osmolality Urine 390 mosm/kg (373-1093)
[2024-05-02 15:04] LABS: Creatinine Urine 132.58 mg/dL; Total Protein Urine Random 8 mg/dL (<12)
== END 2024-05-02 10:21 | disposition home or self-care (01) ==
LOC: HO.WFDLDS 10:20
PROVIDERS: Referring Provider Internal Medicine Hypertension Specialist; Visit Provider Nurse Practitioner Family
DX: N18.9 Chronic kidney disease, unspecified (principal); E03.8 Other specified hypothyroidism; E87.1 Hypo-osmolality and hyponatremia
CPT/HCPCS: 36415; 80048; 81003; 82570; 83930; 83935; 84156; 84300; 84439; 84443; 84550; 85027

== ENCOUNTER 2024-05-04 10:53 | Outpatient (REF) | payer MEDICARE, BC, SELFPAY ==
--- NOTE | ~2024-05-04 | US_ITS ---
EXAMINATION: US RETROPERITONEAL LIMITED (RENAL ONLY) CLINICAL INFORMATION: Essential primary hypertension. COMPARISON: CT scan of the abdomen and pelvis 02/11/2018 TECHNIQUE: Grayscale and color-flow imaging of the kidneys FINDINGS: RIGHT KIDNEY: 8.9 x 4.5 x 5.7 cm (SAG x AP x TRV). The kidney is normal in size, contour, and echogenicity. Renal cortical thickness is normal. No hydronephrosis. 1.5 cm cyst in the lower pole. No stones. LEFT KIDNEY: 9.2 x 5.1 x 4.6 cm (SAG x AP x TRV). The kidney is normal in size, contour, and echogenicity. Renal cortical thickness is normal. No hydronephrosis. 3 cysts noted largest measuring 2.6 cm. US/US renal BI IMPRESSION: Bilateral renal cysts. No additional abnormalities. Electronically signed by: Joe Celeste MD 05/04/2024 04:55 PM EST
== END 2024-05-04 10:54 | disposition home or self-care (01) ==
LOC: HO.US 10:53
PROVIDERS: PCP Family Medicine; Visit Provider Internal Medicine Hypertension Specialist
DX: I12.9 Hypertensive chronic kidney disease with stage 1 through stage 4 chronic kidney disease, or unspecified chronic kidney disease (principal); N18.9 Chronic kidney disease, unspecified
CPT/HCPCS: 76775

== ENCOUNTER 2024-05-29 11:07 | Outpatient (AMB) | payer MEDICARE, BC, SELFPAY ==
[2024-05-29 11:13] VITALS: BP 122/70; PULSE 90; O2SAT 98; BMI 27.3
--- NOTE | 2024-05-29 11:13 | HO.NEPHOV ---
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 He had a routine blood work which showed creatinine of 1.6 EGFR 44 mL/minute. Serum sodium was slightly decreased at 134 millimoles. He has been referred for further evaluation. He is not on any prescription medication. Does not take any NSAIDs. No history of any significant alcohol abuse. Last alcohol intake was a 12 years ago. He occasionally chews tobacco. He has no difficulty urination. [facility] Medical History (Updated 04/04/24 @ 16:56 by Feliciano Rubio CNP) FH: cholecystectomy Ankle fracture, left Surgical History History of ankle surgery Hx of appendectomy Family History Father Bone cancer Social History Housing: House Patient Tobacco Use Status: Current everyday Tobacco user Tobacco use type: Smokeless Tobacco e-Cigarette/Vaping Use: Never Used service: No Current occupational status: retired Current occupational exposures/hazards: No Cognitive needs: No Hearing needs: No Vision needs: Yes Physical Exam Vital Signs: BMI result Body Mass Index 27.3 Comfortable Neck supple no JVD. Lungs entry equal no rales. Heart S1-S2 heard no gallop or rub. Abdomen soft nontender. Neuro alert awake oriented. No asterixis. Extremities no edema. Results Reviewed Results Reviewed: RIGHT KIDNEY: 8.9 x 4.5 x 5.7 cm (SAG x AP x TRV). The kidney is normal in size, contour, and echogenicity. Renal cortical thickness is normal. No hydronephrosis. 1.5 cm cyst in the lower pole. No stones. LEFT KIDNEY: 9.2 x 5.1 x 4.6 cm (SAG x AP x TRV). The kidney is normal in size, contour, and echogenicity. Renal cortical thickness is normal. No hydronephrosis. 3 cysts noted largest measuring 2.6 cm. US/US renal BI IMPRESSION: Bilateral renal cysts. No additional abnormalities. Nephrology Results: Hgb 14.7 g/dl (14.0-18.0) 05/02/24 WBC 6.9 X10*3/uL (4.8-10.8) 05/02/24 Plt Count 261 X10*3/uL (160-400) 05/02/24 Sodium 132 mmol/L (135-145) L 05/02/24 Potassium 4.2 mmol/L (3.3-5.1) 05/02/24 Chloride 98 mmol/L (96-108) 05/02/24 Carbon Dioxide 24 mmol/L (22-29) 05/02/24 BUN 13 mg/dL (9-16) 05/02/24 Creatinine 1.50 mg/dL (0.5-1.4) H 05/02/24 Calcium 9.0 mg/dL (8.4-10.2) 05/02/24 Urine Protein Negative mg/dL (Neg-Trace) 05/02/24 Urine Creatinine 132.58 mg/dL 05/02/24 Renal US 05/04/24 Assessment & Plan Assessment & Plan (1) Chronic kidney disease: Code(s): N18.9 - Chronic kidney disease, unspecified Category: Medical (2) Hyponatremia: Code(s): E87.1 - Hypo-osmolality and hyponatremia Category: Medical Plan 88-year-old man with chronic kidney disease. The recent urinalysis was bland without significant proteinuria or hematuria. Glomerular nephritis/interstitial disease seem unlikely No obstructive uropathy based on renal ultrasonogram. Other possibilities including volume depletion should be considered. Probably has age relted decline in eGFR with nephron loss Marginal improvement in renal function Continue to avoid nephrotoxins Mild hyponatremia. TSH is elevated therefore decreased free water clearance due to hypothyroidism is possibility. Agree with LEvothyroxine Stay on free water restriction Orders: Orders Basic Metabolic Panel 5 Months N18.9 - Chronic kidney disease, unspecified Coding Level of Care Code Est Pt Level 4 (58047) Diagnoses Chronic kidney disease N18.9 Hyponatremia E87.1
== END 2024-05-29 11:26 | disposition home or self-care (01) ==
PROVIDERS: PCP Family Medicine; Visit Provider Internal Medicine Hypertension Specialist
DX: N18.9 Chronic kidney disease, unspecified (principal); E87.1 Hypo-osmolality and hyponatremia
CPT/HCPCS: 99214

== ENCOUNTER → 2024-05-29 11:07 | Outpatient (BNVA) | payer MEDICARE, BC, SELFPAY | PROVIDERS: PCP Family Medicine; Visit Provider Internal Medicine Hypertension Specialist | DX: N18.9 Chronic kidney disease, unspecified (principal); E87.1 Hypo-osmolality and hyponatremia | CPT/HCPCS: 99212 ==

== ENCOUNTER 2024-07-19 10:06 | Outpatient (AMB) | payer MEDICARE, BC, SELFPAY ==
--- NOTE | 2024-07-19 10:13 | A.OFFPC_ITS ---
Vital Signs 07/19/24 10:16 Height 5 ft 11 in Weight 195 lb 2 oz BMI 27.2 BP 126/68 Blood Pressure Location Lt brachial Position Sitting Respiration 16 Pulse 87 Pulse Source Pulse Oximeter Pulse Oximetry (%) 99 Oxygen Delivery Method Room Air Intake Visit Reasons: 2 m fu chronic disease Intake Note: Two month follow up Scheduling Clerk Required: No Allergies No Known Allergies [NKA] Allergy (Mild, Verified 07/19/24 10:33) NOT APPLICABLE Tobacco use date assessed: 04/04/24 Fall risk assessment: 1 Fall in past year Last assessed Fall Risk: 07/19/24 Dental Screening Dental Screen Date: 03/14/24 HPI HPI Comments History of Present Illness Details 88-year-old male presents for chronic di sease management. He has history of hyponatremia, CKD, hypothyroidism, and prediabetes. He is followed by [facility] [place] [place]phrology and was prescribed levothyroxine 20 mcg daily. He offers no complaints and denies acute symptoms at this time. [facility] Medical History (Updated 07/19/24 @ 10:34 by Feliciano Rubio CNP) FH: cholecystectomy Ankle fracture, left Surgical History History of ankle surgery Hx of appendectomy Family History Father Bone cancer Social History (Updated 07/19/24 @ 10:19 by Crystal Cintron CMA) Housing: House Alcohol intake: current Patient Tobacco Use Status: Current everyday Tobacco user Tobacco use type: Smokeless Tobacco (chewing tobacco every other day) Years Smoked: 25-30 years- chewing tobacca e-Cigarette/Vaping Use: Never Used Second Hand Smoke Exposure: No service: No Current occupational status: retired Current occupational exposures/hazards: No Cognitive needs: No Hearing needs: No Vision needs: Yes Questionnaire Thrive Questionnaire Date Thrive assessed: 03/14/24 ELIEZER-7 AMB Questionnaire ELIEZER-7 Date ELIEZER - 7 assessed: 03/14/24 Source: Developed by Drs. Alec Gayle, Arielle Chin, Jh Elliott and colleagues, with an educational trisha from [employer] Review of Systems Const Details: Const Denies chills, Denies fatigue, Denies fever(s), Denies headache(s) and Denies weakness ENT Denies dizziness and Denies headache(s) Card Denies chest pain, Denies lightheadedness, Denies dyspnea and Denies other (Palpitations) Resp Denies cough, Denies dyspnea, Denies wheezing and Denies other ( shortness of breath) GI Denies abdominal pain, Denies melena, Denies hematochezia, Denies change in bowel habits, Denies dyspepsia and Denies nausea Denies hematuria and Denies dysuria Musc Denies abnormal gait, Denies myalgias, Denies arthralgias, Denies numbness and Denies tingling Skin/Breast Denies rash, Denies unusual bruising and Denies wounds Neuro Denies abnormal gait, Denies dizziness, Denies headache(s), Denies memory loss, Denies numbness, Denies Sensory deficit (Neuro), Denies tingling and Denies weakness Psych Denies anxiety, Denies depression, Denies memory loss Endo Denies cold intolerance, Denies fatigue, Denies heat intolerance, Denies polydipsia and Denies polyuria Aller/Immun Denies wheezing Physical exam (Primary Care) Vital Signs: Last Vital Signs Pulse 87 07/19/24 10:16 Resp 16 07/19/24 10:16 BP 126/68 07/19/24 10:16 Pulse Ox 99 07/19/24 10:16 Oxygen Delivery Method Room Air 07/19/24 10:16 BMI result Body Mass Index 27.2 Tobacco/Smoking Status: Tobacco use Status Tobacco use date assessed 04/04/24 07/19/24 10:19 Patient Tobacco Use Status Current everyday Tobacco 07/19/24 10:19 Tobacco use type Smokeless Tobacco (chewing 07/19/24 10:19 tobacco every other day) e-Cigarette/Vaping Use Never Used 07/19/24 10:19 Thrive Assessment: Date of Thrive Assessment Date Thrive assessed 03/14/24 07/19/24 10:19 Const Other: General: no acute distress and well developed Nutritional Appearance: well nourished Orientation/consciousness: patient oriented x3 HENMT Head: Yes normocephalic and Yes atraumatic Eyes General: appearance normal, both eyes and all related structures Pupils: Equal, round and reactive pupils present EOM: EOMs intact bilaterally Resp Effort & Inspection: normal respiratory effort Auscultation: clear to auscultation bilaterally Cardio Rate: regular rate Rhythm: regular rhythm Heart sounds: S1 normal heart sound present, S2 normal heart sound present, no gallops, no murmurs and no rubs GI Palpation (GI): No Abdominal aortic bruit present, Soft to palpation, nontender, No hepatosplenomegaly present and No Rebound tenderness present Auscultation: normal bowel sounds General: Yes no CVA tenderness Back/Spine/Pelvis Back: no CVA tenderness Cervical Spine: cervical ROM normal and No Cervical spine tenderness Thoracic/Lumbar Spine: thoraco-lumbar ROM normal, No pain with thoraco-lumbar ROM, No thoracic spinal tenderness and No lumbar spinal tenderness Extrem General: Yes normal to inspection, No edema and No calf tenderness Skin General: warm and dry. Normal skin color. Normal skin turgor Neuro General: patient oriented x3, gait normal and no focal neuro deficit Cranial nerves: Yes Equal, round and reactive pupils present Cognition (Neuro): normal cognition Gait exam (Neuro): Normal gait present Sensory Exam: No Sensory deficit (Neuro) Psych Appearance: grossly normal Affect: normal affect Attitude: cooperative Thought process: Normal thought process present Coding Level of Care Code Est Pt Level 4 (26640) Diagnoses Hyponatremia E87.1 Chronic kidney disease N18.9 Hypothyroidism E03.9 Prediabetes R73.03 Assessment & Plan Assessment & Plan (1) Hyponatremia: Code(s): E87.1 - Hypo-osmolality and hyponatremia Category: Medical Plan: Recent sodium level is low, 132, previous level was 134. Likely decreased free water clearance due to hypothyroidism per nephrology. He is on levothyroxine 25 mcg daily. Will recheck TSH with T4 and BMP. Will review results and make changes as needed. Follow-up in 3 months or sooner with symptoms or concerns. Verbalized understanding and agreed with treatment plan. (2) Chronic kidney disease: Code(s): N18.9 - Chronic kidney disease, unspecified Category: Medical Plan: Recent creatinine level is slightly elevated, 1.50, previous level was 1.52, GFR is 44. Will recheck BMP to monitor trend. Continue follow-up with [facility] Nephrology. Verbalized understanding and agreed with the plan. (3) Hypothyroidism: Code(s): E03.9 - Hypothyroidism, unspecified Category: Medical Plan: Recent TSH level is slightly elevated, 6.16, T4 is normal. Previous TSH level was 7.03. Will recheck TSH T4 levels and make changes as needed. Follow-up in 3 months. Continue current treatment regimen. Verbalized understanding and agreed with treatment plan. (4) Prediabetes: Code(s): R73.03 - Prediabetes Category: Medical Plan: A1c today is 6.1%. Previous A1c was 6.1%. Advised to limit foods high in saturated fat and avoid foods high in trans fat. Routine exercise encouraged. Will recheck A1c in 3 months. Follow-up in 3 months. Verbalized understanding and agreed with treatment plan. Orders: Orders Basic Metabolic Panel Today E87.1 - Hypo-osmolality and hyponatremia, N18.9 - Chronic kidney disease, unspecified TSH reflex Free T4 Today E03.9 - Hypothyroidism, unspecified AMB Hemoglobin A1c Today Z13.9 - Encounter for screening, unspecified
[2024-07-19 10:16] VITALS: BP 126/68; PULSE 87; RESP 16; O2SAT 99; BMI 27.2
== END 2024-07-19 11:09 | disposition home or self-care (01) ==
PROVIDERS: PCP Nurse Practitioner Family; Visit Provider Nurse Practitioner Family
DX: E87.1 Hypo-osmolality and hyponatremia (principal); N18.9 Chronic kidney disease, unspecified; E03.9 Hypothyroidism, unspecified; R73.03 Prediabetes; Z13.9 Encounter for screening, unspecified

== ENCOUNTER 2024-07-19 11:12 | Outpatient (REF) | payer MEDICARE, BC, SELFPAY ==
[2024-07-19 14:34] LABS: Anion Gap 13 (12-20); Blood Urea Nitrogen 13 mg/dL (9-16); Calcium 9.4 mg/dL (8.4-10.2); Carbon Dioxide 26 mmol/L (22-29); Chloride 100 mmol/L (96-108); Estimated Glomerular Filt Rate 46; Glucose Random 118 mg/dL (60-115); Potassium 4.7 mmol/L (3.3-5.1); Sodium 134 mmol/L (135-145)
[2024-07-19 14:53] LABS: TSH reflex Free T4 4.23 uIU/mL (0.32-4.0)
[2024-07-19 15:34] LABS: Free T4 (Free Thyroxine) 1.16 ng/dL (0.71-1.85)
== END 2024-07-19 11:13 | disposition home or self-care (01) ==
LOC: HO.WFDLDS 11:12
PROVIDERS: Visit Provider Nurse Practitioner Family
DX: N18.9 Chronic kidney disease, unspecified (principal); E87.1 Hypo-osmolality and hyponatremia; E03.9 Hypothyroidism, unspecified; R73.03 Prediabetes
CPT/HCPCS: 36415; 80048; 83036; 84439; 84443; 99212

== ENCOUNTER 2024-10-15 09:02 | Outpatient (REF) | payer MEDICARE, BC, SELFPAY ==
[2024-10-15 12:07] LABS: Anion Gap 13 (12-20); Blood Urea Nitrogen 13 mg/dL (9-16); Calcium 8.9 mg/dL (8.4-10.2); Carbon Dioxide 24 mmol/L (22-29); Chloride 102 mmol/L (96-108); Estimated Glomerular Filt Rate 55; Glucose Random 132 mg/dL (60-115); Potassium 4.6 mmol/L (3.3-5.1); Sodium 134 mmol/L (135-145)
[2024-10-15 12:16] LABS: TSH reflex Free T4 0.67 uIU/mL (0.32-4.0)
== END 2024-10-15 09:03 | disposition home or self-care (01) ==
LOC: HO.WFDLDS 09:02
PROVIDERS: Referring Provider Internal Medicine Hypertension Specialist; Visit Provider Nurse Practitioner Family
DX: E03.9 Hypothyroidism, unspecified (principal)
CPT/HCPCS: 36415; 80048; 84443

== ENCOUNTER 2024-11-08 10:39 | Outpatient (AMB) | payer MEDICARE, BC, SELFPAY ==
[2024-11-08 10:48] VITALS: BP 110/58; PULSE 96; O2SAT 97; BMI 26.6
--- NOTE | 2024-11-08 10:48 | HO.NEPHOV_ITS ---
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 He had a routine blood work which showed creatinine of 1.6 EGFR 44 mL/minute. Serum sodium was slightly decreased at 134 millimoles. He has been referred for further evaluation. He is not on any prescription medication. Does not take any NSAIDs. No history of any significant alcohol abuse. Last alcohol intake was a 12 years ago. He occasionally chews tobacco. He has no difficulty urination. 11/08/24 89-year-old male presenting with chronic kidney disease. He was previously seen in May, with follow-up blood work performed on October 15 showing improvement in kidney function. The patient reports no significant changes in health or new issues since the last visit, aside from urination difficulties. He continues on levothyroxine and aspirin without recent medication changes. The patient consumes a mixture of juices daily along with moderate tea intake, minimizing plain water consumption. Sodium levels are monitored, standing at 134 mEq/L, and remain stable under current dietary practices. [facility] Medical History (Updated 07/19/24 @ 10:34 by Feliciano Rubio CNP) FH: cholecystectomy Ankle fracture, left Surgical History History of ankle surgery Hx of appendectomy Family History Father Bone cancer Social History Housing: House Alcohol intake: current Patient Tobacco Use Status: Current everyday Tobacco user Tobacco use type: Smokeless Tobacco (chewing tobacco every other day) Years Smoked: 25-30 years- chewing tobacca e-Cigarette/Vaping Use: Never Used Second Hand Smoke Exposure: No service: No Current occupational status: retired Current occupational exposures/hazards: No Cognitive needs: No Hearing needs: No Vision needs: Yes Physical Exam Vital Signs: Last Vital Signs Pulse 96 11/08/24 10:48 BP 110/58 L 11/08/24 10:48 Pulse Ox 97 11/08/24 10:48 Oxygen Delivery Method Room Air 11/08/24 10:48 BMI result Body Mass Index 26.6 Comfortable Neck supple no JVD. Lungs entry equal no rales. Heart S1-S2 heard no gallop or rub. Abdomen soft nontender. Neuro alert awake oriented. No asterixis. Extremities no edema. Results Reviewed Nephrology Results: Hgb 14.7 g/dl (14.0-18.0) 05/02/24 WBC 6.9 X10*3/uL (4.8-10.8) 05/02/24 Plt Count 261 X10*3/uL (160-400) 05/02/24 Sodium 134 mmol/L (135-145) L 10/15/24 Potassium 4.6 mmol/L (3.3-5.1) 10/15/24 Chloride 102 mmol/L (96-108) 10/15/24 Carbon Dioxide 24 mmol/L (22-29) 10/15/24 BUN 13 mg/dL (9-16) 10/15/24 Creatinine 1.25 mg/dL (0.5-1.4) 10/15/24 Calcium 8.9 mg/dL (8.4-10.2) 10/15/24 Urine Protein Negative mg/dL (Neg-Trace) 05/02/24 Urine Creatinine 132.58 mg/dL 05/02/24 Renal US 05/04/24 Assessment & Plan Assessment & Plan (1) Chronic kidney disease: Code(s): N18.9 - Chronic kidney disease, unspecified Category: Medical (2) Hyponatremia: Code(s): E87.1 - Hypo-osmolality and hyponatremia Category: Medical Plan Elderly man with chronic kidney disease. The recent urinalysis was bland without significant proteinuria or hematuria. Glomerular nephritis/interstitial disease seem unlikely No obstructive uropathy based on renal ultrasonogram. Other possibilities including volume depletion should be considered. Probably has age related decline in eGFR with nephron loss Marginal improvement in renal function Continue to avoid nephrotoxins Mild improvement in eGFR ! Mild hyponatremia. -134 TSH is elevated therefore decreased free water clearance due to hypothyroidism is possibility. Agree with Levothyroxine Stay on free water restriction Orders: Orders Basic Metabolic Panel 6 Months N18.9 - Chronic kidney disease, unspecified Coding Level of Care Code Est Pt Level 4 (01724) Diagnoses Chronic kidney disease N18.9 Hyponatremia E87.1
== END 2024-11-08 11:03 | disposition home or self-care (01) ==
LOC: HO.HKA 10:40
PROVIDERS: PCP Family Medicine; Visit Provider Internal Medicine Hypertension Specialist
DX: N18.9 Chronic kidney disease, unspecified (principal); E87.1 Hypo-osmolality and hyponatremia
CPT/HCPCS: 99214

== ENCOUNTER → 2024-11-08 10:39 | Outpatient (BNVA) | payer MEDICARE, BC, SELFPAY | PROVIDERS: PCP Family Medicine; Visit Provider Internal Medicine Hypertension Specialist | DX: N18.9 Chronic kidney disease, unspecified (principal); E87.1 Hypo-osmolality and hyponatremia | CPT/HCPCS: 99212 ==

== ENCOUNTER 2024-11-12 13:17 | Outpatient (AMB) | payer MEDICARE, BC, SELFPAY ==
--- NOTE | 2024-11-12 13:22 | A.OFFPC_ITS ---
Vital Signs 11/12/24 13:25 Height 5 ft 11 in Weight 190 lb 8 oz BMI 26.6 BP 131/84 Blood Pressure Location Lt brachial Position Sitting Respiration 16 Pulse 79 Pulse Source Pulse Oximeter Temp 97.7 F Temp Source Oral Pulse Oximetry (%) 99 Oxygen Delivery Method Room Air Intake Visit Reasons: follow up blood work/thyroid Intake Note: patient here for follow up on blood work and thyroid Loaders Required: No Allergies No Known Allergies [NKA] Allergy (Mild, Verified 11/12/24 13:53) NOT APPLICABLE Medication List - Last Reconciled 11/12/24 by Feliciano Rubio CNP aspirin 325 mg PO DAILY PRN levothyroxine 50 mcg PO DAILY 30 days Tobacco use date assessed: 11/12/24 Fall risk assessment: No Falls in past year Last assessed Fall Risk: 11/12/24 Dental Screening Dental Screen Date: 11/12/24 Did you have a dental visit in the last 12 months?: Yes Did you have a dental problem in the last 6 months where you did not have access to dental care?: No Was dental information given to patient?: Patient has dentist HPI HPI Comments History of Present Illness Details 89-year-old male presents for hyponatrem ia, CKD, hypothyroidism, and prediabetes follow-up. He admits to taking his medications as prescribed without adverse reactions. He notes that he has been making healthy lifestyle changes. He offers no complaints and denies acute symptoms at this time. [facility] Medical History (Updated 07/19/24 @ 10:34 by Feliciano Rubio CNP) FH: cholecystectomy Ankle fracture, left Surgical History History of ankle surgery Hx of appendectomy Family History Father Bone cancer Social History Housing: House Alcohol intake: current Patient Tobacco Use Status: Current everyday Tobacco user Tobacco use type: Smokeless Tobacco (chewing tobacco every other day) Years Smoked: 25-30 years- chewing tobacca e-Cigarette/Vaping Use: Never Used Second Hand Smoke Exposure: No service: No Current occupational status: retired Current occupational exposures/hazards: No Cognitive needs: No Hearing needs: No Vision needs: Yes Questionnaire Thrive Questionnaire Date Thrive assessed: 03/14/24 ELIEZER-7 AMB Questionnaire ELIEZER-7 Date ELIEZER - 7 assessed: 03/14/24 Source: Developed by Drs. Alec Gayle, Arielle Chin, Jh Elliott and colleagues, with an educational trisha from [employer]. Review of Systems Const Details: Const Denies chills, Denies fatigue, Denies fever(s), Denies headache(s) and Denies weakness ENT Denies dizziness and Denies headache(s) Card Denies chest pain, Denies lightheadedness, Denies dyspnea and Denies other (Palpitations) Resp Denies cough, Denies dyspnea, Denies wheezing and Denies other ( shortness of breath) GI Denies abdominal pain, Denies melena, Denies hematochezia, Denies change in bowel habits, Denies dyspepsia and Denies nausea Denies hematuria and Denies dysuria Musc Denies abnormal gait, Denies myalgias, Denies arthralgias, Denies numbness and Denies tingling Skin/Breast Denies rash, Denies unusual bruising and Denies wounds Neuro Denies abnormal gait, Denies dizziness, Denies headache(s), Denies memory loss, Denies numbness, Denies Sensory deficit (Neuro), Denies tingling and Denies weakness Psych Denies anxiety, Denies depression, Denies memory loss Endo Denies cold intolerance, Denies fatigue, Denies heat intolerance, Denies polydipsia and Denies polyuria Aller/Immun Denies wheezing Physical exam (Primary Care) Vital Signs: Last Vital Signs Temp 97.7 F 11/12/24 13:25 Pulse 79 11/12/24 13:25 Resp 16 11/12/24 13:25 BP 131/84 11/12/24 13:25 Pulse Ox 99 11/12/24 13:25 Oxygen Delivery Method Room Air 11/12/24 13:25 BMI result Body Mass Index 26.6 Tobacco/Smoking Status: Tobacco use Status Tobacco use date assessed 11/12/24 11/12/24 13:28 Patient Tobacco Use Status Current everyday Tobacco 11/12/24 13:23 Tobacco use type Smokeless Tobacco (chewing 11/12/24 13:23 tobacco every other day) e-Cigarette/Vaping Use Never Used 11/12/24 13:23 Thrive Assessment: Date of Thrive Assessment Date Thrive assessed 03/14/24 11/12/24 13:23 Const Other: General: no acute distress and well developed Nutritional Appearance: well nourished Orientation/consciousness: patient oriented x3 HENMT Head: Yes normocephalic and Yes atraumatic Eyes General: appearance normal, both eyes and all related structures Pupils: Equal, round and reactive pupils present EOM: EOMs intact bilaterally Resp Effort & Inspection: normal respiratory effort Auscultation: clear to auscultation bilaterally Cardio Rate: regular rate Rhythm: regular rhythm Heart sounds: S1 normal heart sound present, S2 normal heart sound present, no gallops, no murmurs and no rubs GI Palpation (GI): No Abdominal aortic bruit present, Soft to palpation, nontender, No hepatosplenomegaly present and No Rebound tenderness present Auscultation: normal bowel sounds General: Yes no CVA tenderness Back/Spine/Pelvis Back: no CVA tenderness Cervical Spine: cervical ROM normal and No Cervical spine tenderness Thoracic/Lumbar Spine: thoraco-lumbar ROM normal, No pain with thoraco-lumbar ROM, No thoracic spinal tenderness and No lumbar spinal tenderness Extrem General: Yes normal to inspection, No edema and No calf tenderness Skin General: warm and dry. Normal skin color. Normal skin turgor Neuro General: patient oriented x3, gait normal and no focal neuro deficit Cranial nerves: Yes Equal, round and reactive pupils present Cognition (Neuro): normal cognition Gait exam (Neuro): Normal gait present Sensory Exam: No Sensory deficit (Neuro) Psych Appearance: grossly normal Affect: normal affect Attitude: cooperative Thought process: Normal thought process present Results AMB Hemoglobin A1c AMB Hemoglobin A1c 5.7 % Last Edit by Nuha Manzano MA on 11/12/24 15:25 Results Reviewed Results Reviewed: Laboratory Last Values Hgb A1c (Clinic) 5.7 % (4.0-6.0) 11/12/24 13:50 Coding Level of Care Code Est Pt Level 3 (06984) Diagnoses Hypothyroidism E03.9 Hyponatremia E87.1 Chronic kidney disease N18.9 Prediabetes R73.03 Assessment & Plan Assessment & Plan (1) Hypothyroidism: Code(s): E03.9 - Hypothyroidism, unspecified Category: Medical Plan: Recent TSH level is normal. Continue current treatment regimen. Perform TSH/T4 blood work a few days before next visit. Follow-up in 3 months. Return sooner with symptoms or concerns. Verbalized understanding and agreed with the treatment plan. (2) Hyponatremia: Code(s): E87.1 - Hypo-osmolality and hyponatremia Category: Medical Plan: Recent sodium level is slightly low, 134. Previous level was 134. Likely decreased free water clearance due to hypothyroidism. Will recheck his sodium level now that his TSH has normalized; Will likely resulted normal. Will review results and make changes as needed. Verbalized understanding and agreed with the plan. (3) Chronic kidney disease: Code(s): N18.9 - Chronic kidney disease, unspecified Category: Medical Plan: Recent BUN/creatinine ratio is normal, 13/1.25 respectively, GFR improved from 46 to 55. Adequate hydration encouraged. Advised to avoid nephrotoxins. Followed by [facility] Nephrology. Verbalized understanding and agreed with the plan. (4) Prediabetes: Code(s): R73.03 - Prediabetes Category: Medical Plan: A1c today is 5.7%. Previous A1c was 6.1%. Routine exercise and healthy diet, including low carbs encouraged. Will monitor A1c periodically or if presents with related symptoms or concerns. Verbalized understanding and agreed with the plan. Orders: Orders Sodium Today E87.1 - Hypo-osmolality and hyponatremia AMB Hemoglobin A1c Today Z13.9 - Encounter for screening, unspecified
[2024-11-12 13:25] VITALS: BP 131/84; PULSE 79; RESP 16; TEMP 36.5; O2SAT 99; BMI 26.6
== END 2024-11-12 14:14 | disposition home or self-care (01) ==
LOC: HO.HMCFM 13:17
PROVIDERS: PCP Family Medicine; Visit Provider Nurse Practitioner Family
DX: E03.9 Hypothyroidism, unspecified (principal); E87.1 Hypo-osmolality and hyponatremia; N18.9 Chronic kidney disease, unspecified; R73.03 Prediabetes; Z13.9 Encounter for screening, unspecified

== ENCOUNTER → 2024-11-12 13:17 | Outpatient (BNVA) | payer MEDICARE, BC, SELFPAY | PROVIDERS: PCP Family Medicine; Visit Provider Nurse Practitioner Family | DX: E03.9 Hypothyroidism, unspecified (principal); E87.1 Hypo-osmolality and hyponatremia; N18.9 Chronic kidney disease, unspecified; R73.03 Prediabetes | CPT/HCPCS: 36415; 80048; 83036; 99212 ==

== ENCOUNTER 2024-11-12 14:30 | Outpatient (REF) | payer MEDICARE, BC, SELFPAY ==
[2024-11-12 18:02] LABS: Anion Gap 11 (12-20); Blood Urea Nitrogen 13 mg/dL (9-16); Calcium 9.2 mg/dL (8.4-10.2); Carbon Dioxide 27 mmol/L (22-29); Chloride 99 mmol/L (96-108); Estimated Glomerular Filt Rate 51; Glucose Random 103 mg/dL (60-115); Potassium 4.4 mmol/L (3.3-5.1); Sodium 133 mmol/L (135-145)
== END 2024-11-12 14:31 | disposition home or self-care (01) ==
LOC: HO.WFDLDS 14:30
PROVIDERS: Referring Provider Internal Medicine Hypertension Specialist; Visit Provider Nurse Practitioner Family
DX: Z13.89 Encounter for screening for other disorder (principal)
CPT/HCPCS: 36415; 80048

== ENCOUNTER 2025-02-15 13:27 | Outpatient (REF) | payer MEDICARE, BC, SELFPAY ==
[2025-02-15 18:54] LABS: Alanine Aminotransferase 20 U/L (0-40); Albumin Level 4.0 g/dL (3.5-5.0); Alkaline Phosphatase 104 U/L (39-117); Anion Gap 11 (12-20); Aspartate Amino Transferase 29 U/L (5-37); Blood Urea Nitrogen 15 mg/dL (9-16); Calcium 9.0 mg/dL (8.4-10.2); Carbon Dioxide 26 mmol/L (22-29); Chloride 100 mmol/L (96-108); Estimated Glomerular Filt Rate 44; Potassium 4.4 mmol/L (3.3-5.1); Sodium 133 mmol/L (135-145); Total Protein 7.3 g/dL (6.5-8.0)
[2025-02-15 19:02] LABS: Free T4 (Free Thyroxine) 0.97 ng/dL (0.71-1.85); Thyroid Stimulating Hormone 7.92 uIU/mL (0.32-4.0)
== END 2025-02-15 13:28 | disposition home or self-care (01) ==
LOC: HO.WFDLDS 13:27
PROVIDERS: PCP Family Medicine; Visit Provider Family Medicine
DX: E03.8 Other specified hypothyroidism (principal); Z79.82 Long term (current) use of aspirin; Z79.890 Hormone replacement therapy
CPT/HCPCS: 36415; 80053; 84439; 84443; 84480; 96127; 99212

== ENCOUNTER 2025-02-15 13:27 | Outpatient (AMB) | payer MEDICARE, BC, SELFPAY ==
--- NOTE | 2025-02-15 13:30 | MHC.PC.OV ---
Vital Signs 02/15/25 13:34 Height 5 ft 11 in Weight 194 lb 6 oz BMI 27.1 BP 130/65 Blood Pressure Location Lt brachial Position Sitting Respiration 12 Pulse 60 Pulse Source Pulse Oximeter Temp 97.8 F Temp Source Oral Pulse Oximetry (%) 96 Oxygen Delivery Method Room Air Intake Visit Reasons: 3 mos hypothyroidism Intake Note: Follow up on hypothyroidism. Patient needs refill. Manager Statistics Required: No Allergies No Known Allergies (NKA) Allergy (Mild, Verified 02/15/25 13:31) NOT APPLICABLE Medication List - Last Reconciled 02/15/25 by Yvan Barraza MD aspirin 325 mg PO DAILY PRN levothyroxine 50 mcg PO DAILY 90 days Tobacco use date assessed: 02/15/25 Fall risk assessment: No Falls in past year Last assessed Fall Risk: 02/15/25 Dental Screening Dental Screen Date: 02/15/25 Did you have a dental visit in the last 12 months?: Yes Did you have a dental problem in the last 6 months where you did not have access to dental care?: No Was dental information given to patient?: Patient has dentist HPI 3 mos hypothyroidism HPI Details 89 y/o male presents to f/u hypothyroidism. No recent thyroid labs to review. He is on levothyroxine 50 mcg daily. Pt notes he has not been taking any meds the past couple months. Pt feels well today. [facility] Medical History (Updated 07/19/24 @ 10:34 by Feliciano Rubio CNP) FH: cholecystectomy Ankle fracture, left Surgical History History of ankle surgery Hx of appendectomy Family History Father Bone cancer Social History Housing: House Alcohol intake: current Patient Tobacco Use Status: Current everyday Tobacco user Tobacco use type: Smokeless Tobacco (chewing tobacco every other day) Years Smoked: 25-30 years- chewing tobacca e-Cigarette/Vaping Use: Never Used Second Hand Smoke Exposure: No service: No Current occupational status: retired Current occupational exposures/hazards: No Cognitive needs: No Hearing needs: No Vision needs: Yes Questionnaire PHQ-9 Over the last 2 weeks, how often have you been bothered by any of the following problems? 1. Little interest or pleasure in doing things: not at all 2. Feeling down, depressed, or hopeless: not at all 3. Trouble falling or staying asleep, or sleeping too much: not at all 4. Feeling tired or having little energy: not at all 5. Poor appetite or overeating: not at all 6. Feeling bad about yourself - or that you are a failure or have let yourself or your family down: not at all 7. Trouble concentrating on things, such as reading the newspaper or watching television: not at all 8. Moving or speaking so slowly that other people could have noticed. Or the opposite - being so fidgety or restless that you have been moving around a lot more than usual: not at all 9. Thoughts that you would be better off or of hurting yourself in some way: not at all Total score: 0 Depression Screening Interpretation: Negative Depression Screening Done: Yes 78250 - PHQ-9 Billing: Yes Source: Developed by Drs. Alec Gayle, Arielle Chin, Jh Elliott and colleagues, with an educational trisha from [employer]. Thrive Questionnaire Date Thrive assessed: 02/15/25 I am a: Patient What is your living situation today?: I have a steady place to live Within the past 12 months, did the food you bought not last and you didn't have the money to get more?: Never true Within the past 12 months, did you worry whether your food would run out before you got money to buy more?: Never true Do you have trouble paying for medicines?: No Do you have trouble getting transportation to medical appointments?: No Do you have trouble paying your heating and electricity bill?: No Do you have trouble taking care of your child, family member or friend?: No Do you have trouble with day-to-day activities such as bathing, preparing meals, shopping, managing finances, etc.?: No Are you currently unemployed and looking for a job?: No Are you interested in more education?: No THRIVE Score: 0 ELIEZER-7 AMB Questionnaire ELIEZER-7 Date ELIEZER - 7 assessed: 02/15/25 Feeling nervous, anxious, or on edge: 0 = Not at all Not being able to stop or control worryin = Not at all Worrying too much about different things: 0 = Not at all Trouble relaxin = Not at all Being so restless that it is hard to sit still: 0 = Not at all Becoming easily annoyed or irritable: 0 = Not at all Feeling afraid as if something awful might happen: 0 = Not at all Total ELIEZER-7 score (0-4 normal; 5-9 mild; 10-14 moderate; 15-21 severe): 0 Source: Developed by Drs. Alec Gayle, Arielle Chin, Jh Elliott and colleagues, with an educational trisha from [employer]. ELIEZER-7 Assessment Billing ELIEZER-7 Assessment Tool: ELIEZER-7 Assessment 29616 Review of Systems Const Denies chills, Denies fatigue, Denies fever(s), Denies headache(s) and Denies weakness ENT Denies dizziness and Denies headache(s) Card Denies dyspnea Resp Denies cough, Denies dyspnea, Denies wheezing and Denies other (shortness of breath) Musc Denies numbness and Denies tingling Neuro Denies dizziness, Denies headache(s), Denies numbness, Denies tingling and Denies weakness Psych Denies anxiety and Denies depression Endo Denies fatigue Aller/Immun Denies wheezing Physical exam (Primary Care) Vital Signs: Last Vital Signs Temp 97.8 F 02/15/25 13:34 Pulse 60 02/15/25 13:34 Resp 12 02/15/25 13:34 BP 130/65 02/15/25 13:34 Pulse Ox 96 02/15/25 13:34 Oxygen Delivery Method Room Air 02/15/25 13:34 BMI result Body Mass Index 27.1 Tobacco/Smoking Status: Tobacco use Status Tobacco use date assessed 02/15/25 02/15/25 13:36 Patient Tobacco Use Status Current everyday Tobacco 02/15/25 13:36 Tobacco use type Smokeless Tobacco (chewing 02/15/25 13:36 tobacco every other day) e-Cigarette/Vaping Use Never Used 02/15/25 13:36 PHQ-9: PHQ-9 Score PHQ-9: Total score 0 02/15/25 14:01 Depression Screening Interpretation: Negative Thrive Assessment: Date of Thrive Assessment Date Thrive assessed 02/15/25 02/15/25 13:36 Const General: well developed; No acute distress Nutritional Appearance: well nourished Orientation/consciousness: patient oriented x3 HENMT Head: Yes normocephalic and Yes atraumatic Eyes General: appearance normal, both eyes and all related structures Pupils: Equal, round and reactive pupils present EOM: EOMs intact bilaterally Resp Effort & Inspection: normal respiratory effort Neuro General: patient oriented x3 and gait normal Cranial nerves: Yes Equal, round and reactive pupils present Psych Affect: normal affect Coding Level of Care Code Est Pt Level 3 (26943) Diagnoses Hypothyroidism E03.9 Additional Codes ELIEZER-7 Assessment Billing - ELIEZER-7 Assessment Tool: ELIEZER-7 Assessment 16415 ([id number]) PHQ-9 - 52194 - PHQ-9 Billing: Yes ([id number]) Assessment & Plan Assessment & Plan (1) Hypothyroidism: Code(s): E03.9 - Hypothyroidism, unspecified Category: Medical Plan: History of hypothyroidism and subclinical hypothyroidism. Patient has been out of his thyroid hormone medication for about a month He will get his thyroid hormone levels Checked today. We will follow-up in a couple of weeks Orders: Orders Triiodothyronine T3 Total Today E03.8 - Other specified hypothyroidism, E03.9 - Hypothyroidism, unspecified Comprehensive Met. Panel Today E03.8 - Other specified hypothyroidism Thyroid Stimulating Hormone Today E03.8 - Other specified hypothyroidism, E03.9 - Hypothyroidism, unspecified Free T4 (Free Thyroxine) Today E03.8 - Other specified hypothyroidism, E03.9 - Hypothyroidism, unspecified Medications: Changed From levothyroxine 50 mcg PO DAILY 30 tabs 0RF To levothyroxine 50 mcg PO DAILY 90 tabs 3RF 90 days
[2025-02-15 13:34] VITALS: BP 130/65; PULSE 60; RESP 12; TEMP 36.6; O2SAT 96; BMI 27.1
== END 2025-02-15 14:07 | disposition home or self-care (01) ==
LOC: HO.HMCFM 13:28
PROVIDERS: PCP Family Medicine; Visit Provider Family Medicine
DX: E03.9 Hypothyroidism, unspecified (principal)

== ENCOUNTER 2025-03-04 10:27 | Outpatient (AMB) | payer MEDICARE, BC, SELFPAY ==
--- NOTE | 2025-03-04 10:24 | A.OFFPC_ITS ---
Intake Visit Reasons: f/u labs via telemed Intake Note: Telehealth to review labs. Soft Work Wrapper Examiner Required: No Allergies No Known Allergies (NKA) Allergy (Mild, Verified 03/04/25 10:24) NOT APPLICABLE Medication List - Last Reconciled 03/04/25 by Yvan Barraza MD aspirin 325 mg PO DAILY PRN levothyroxine 50 mcg PO DAILY 90 days Tobacco use date assessed: 02/15/25 Fall risk assessment: No Falls in past year Last assessed Fall Risk: 03/04/25 Dental Screening Dental Screen Date: 02/15/25 HPI f/u labs via telemed HPI Details 89 y/o male presents to f/u labs via tel emed. Labs drawn 02/15/25. TSH elevated at 7.92 uIU/mL. Pt notes he does feel fatigued. HPI Comments History of Present Illness Details Documentation assistance for Yvan Barraza MD, was provided by Sony Lebron,? Gut Dropper on 03/04/2025 at 11:14 AM EST. I, Dr. Barraza, have read, observed, and verified documentation. ?? [facility] Medical History (Updated 07/19/24 @ 10:34 by Feliciano Rubio CNP) FH: cholecystectomy Ankle fracture, left Surgical History History of ankle surgery Hx of appendectomy Family History Father Bone cancer Social History Housing: House Alcohol intake: current Patient Tobacco Use Status: Current everyday Tobacco user Tobacco use type: Smokeless Tobacco (chewing tobacco every other day) Years Smoked: 25-30 years- chewing tobacca e-Cigarette/Vaping Use: Never Used Second Hand Smoke Exposure: No service: No Current occupational status: retired Current occupational exposures/hazards: No Cognitive needs: No Hearing needs: No Vision needs: Yes Questionnaire Thrive Questionnaire Date Thrive assessed: 02/15/25 ELIEZER-7 AMB Questionnaire ELIEZER-7 Date ELIEZER - 7 assessed: 02/15/25 Source: Developed by Drs. Alec Gayle, Arielle Chin, Jh Elliott and colleagues, with an educational trisha from [employer]. Review of Systems Const Denies chills, Denies fatigue, Denies fever(s), Denies headache(s) and Denies weakness ENT Denies dizziness and Denies headache(s) Card Denies dyspnea Resp Denies cough, Denies dyspnea, Denies wheezing and Denies other (shortness of breath) Musc Denies numbness and Denies tingling Neuro Denies dizziness, Denies headache(s), Denies numbness, Denies tingling and Denies weakness Psych Denies anxiety and Denies depression Endo Denies fatigue Aller/Immun Denies wheezing Physical exam (Primary Care) Tobacco/Smoking Status: Tobacco use Status Tobacco use date assessed 02/15/25 03/04/25 10:25 Patient Tobacco Use Status Current everyday Tobacco 03/04/25 10:25 Tobacco use type Smokeless Tobacco (chewing 03/04/25 10:25 tobacco every other day) e-Cigarette/Vaping Use Never Used 03/04/25 10:25 Thrive Assessment: Date of Thrive Assessment Date Thrive assessed 02/15/25 03/04/25 10:25 Telehealth Telehealth Telehealth Platform: Telephone Location of provider rendering services: practice address Location of patient: address on file Patient Identification confirmed using: Name, : Yes Telehealth method: voice only Patient verbally consented to treatment: Yes Patient verbally consented to billing insurance company: Yes Patient informed of any privacy concerns related to visit: Yes Minutes spent on Phone/Video with Pt.: 5 Coding Level of Care Code Tele Est Pt Level 2 (47574) Diagnoses Hypothyroidism E03.9 Assessment & Plan Assessment & Plan (1) Hypothyroidism: Code(s): E03.9 - Hypothyroidism, unspecified Category: Medical Plan: TSH is high in patient notes some fatigue He is not picked up his medication as he says the pharmacy did not let him know it was available. Prescription was sent February 15 and our systems audit shows pharmacy verified. Will have our office contact pharmacy Patient can start medication He will recheck labs prior to his next visit in about 2. Orders: Orders Basic Metabolic Panel Today E03.9 - Hypothyroidism, unspecified, Z00.00 - Encounter for general adult medical examination without abnormal findings Free T4 (Free Thyroxine) Today E03.9 - Hypothyroidism, unspecified Thyroid Stimulating Hormone Today E03.9 - Hypothyroidism, unspecified Triiodothyronine T3 Total Today E03.9 - Hypothyroidism, unspecified
== END 2025-03-04 12:38 | disposition home or self-care (01) ==
LOC: HO.HMCFM 10:27
PROVIDERS: PCP Family Medicine; Visit Provider Family Medicine
DX: E03.9 Hypothyroidism, unspecified (principal)

== ENCOUNTER 2025-06-04 09:53 | Outpatient (REF) | payer MEDICARE, BC, SELFPAY ==
[2025-06-04 12:19] LABS: Anion Gap 10 (12-20); Blood Urea Nitrogen 14 mg/dL (9-16); Calcium 9.2 mg/dL (8.4-10.2); Carbon Dioxide 26 mmol/L (22-29); Chloride 101 mmol/L (96-108); Estimated Glomerular Filt Rate 51; Potassium 4.3 mmol/L (3.3-5.1); Sodium 133 mmol/L (135-145)
== END 2025-06-04 09:54 | disposition home or self-care (01) ==
LOC: HO.WFDLDS 09:53
PROVIDERS: Visit Provider Internal Medicine Hypertension Specialist
DX: N18.9 Chronic kidney disease, unspecified (principal)
CPT/HCPCS: 36415; 80048